=== PATIENT | female | born 1935 | race Caucasian/White ===

== ENCOUNTER 2020-03-10 11:47 | Emergency (ER) | payer OTHER ==
[~2020-03-10] VITALS: Ht 154.9 cm; Wt 45.4 kg
[~2020-03-10 11:47] MED LIST: ABSORBINE JR.0.75 GM; ABSORBINE JR.0.75 GM TP; ALEVE220 MG PO; AMBIEN5 MG PO; AMITRIPTYLINE H10 M3 PO; CLONAZEPAM 0.50.5 M1 PO; ENDOCET 5-3251 EACH PO; FORTEO750 MCG/3 SUBQ; HYDROCODON-ACE1 EAC7 PO; LORAZEPAM 1 MG T1 M1 PO; LORTAB 5-500 T1 EAC1 PO; MELOXICAM7.5 MG PO; PERCOCET 5-3251 EACH PO; PERCOCET PO; SLEEPING MED; STOOL SOFTENER100 M1 PO; TOLTERODINE TART2 MG PO; TRAMADOL 50 MG50 MG PO; TRAZODONE HCL50 MG PO; VOLTAREN GEL 1100 G1 TOP; XANAX 0.25 MG0.25 MG PO; ZOFRAN ODT4 MG PO
[2020-03-10] MEDS ORDERED: NORCO 10-325 T1 EACH PO (13:35)
[2020-03-10] MEDS ORDERED: LIDOCAINE PAIN1 EACH TRANSDERM (13:35)
[2020-03-10 14:20] VITALS: BP 184/79
== END 2020-03-10 14:21 | disposition home or self-care (01) ==
LOC: ER 11:47
DX: S22.078A Other fracture of T9-T10 vertebra, initial encounter for closed fracture (principal); S32.028A Other fracture of second lumbar vertebra, initial encounter for closed fracture; S09.90XA Unspecified injury of head, initial encounter; I10 Essential (primary) hypertension; Z79.899 Other long term (current) drug therapy; W06.XXXA Fall from bed, initial encounter; Y93.89 Activity, other specified; Y92.89 Other specified places as the place of occurrence of the external cause; Y99.8 Other external cause status

== ENCOUNTER 2020-03-25 05:10 | Emergency (ER) | payer OTHER ==
[~2020-03-25] VITALS: Ht 157.5 cm; Wt 49.0 kg
[~2020-03-25 05:10] MED LIST changes: +LIDOCAINE PAIN1 EACH TRANSDERM; +NORCO 10-325 T1 EACH PO
[2020-03-25] MEDS ORDERED: CBD OIL (05:29)
[2020-03-25] MEDS ORDERED: BISOPROLOL PO (05:30)
[2020-03-25] MEDS ORDERED: SENNA-DOCUSATE1 EAC1 PO (07:20)
[2020-03-25 07:22] VITALS: BP 136/55
== END 2020-03-25 08:30 | disposition home or self-care (01) ==
LOC: ER 05:10
DX: K59.00 Constipation, unspecified (principal); I10 Essential (primary) hypertension; Z90.89 Acquired absence of other organs; Z79.899 Other long term (current) drug therapy

== ENCOUNTER 2020-04-19 07:24 | Inpatient (IN) | payer OTHER ==
[~2020-04-19] VITALS: Ht 152.4 cm; Wt 45.4 kg
[~2020-04-19 07:24] MED LIST changes: +BISOPROLOL PO; +CBD OIL; +SENNA-DOCUSATE1 EAC1 PO
[2020-04-19 07:26] VITALS: BP 162/83
[2020-04-19 08:18] LABS: ABSOLUTE NEUTROPHILS 4.9 thou/uL (1.4-8.2); BASOPHILS 0.7 % (0.0-2.0); EOSINOPHILS 0.6 % (0.0-3.0); HEMATOCRIT 41.2 % (37.0-47.0); HEMOGLOBIN 13.5 gm/dL (12.0-15.0); LYMPHOCYTES 17.4 % (24.0-44.0); MCH 24.9 pg (26.0-34.0); MCHC 32.8 g/dL (28.0-37.0); MCV 75.8 fL (80.0-100.0); PLATELET COUNT 326 thou/uL (150-400); POLYS 70.3 % (36.0-66.0); RBC 5.44 mil/uL (4.20-5.00); RDW 15.4 % (10.5-14.5); WBC 6.9 thou/uL (4.0-11.0)
[2020-04-19 08:30] LABS: CALCIUM 9.7 mg/dL (8.5-10.1); CREATININE 0.8 mg/dL (0.6-1.0)
[2020-04-19 08:31] LABS: POTASSIUM 4.4 mmol/L (3.5-5.1)
[2020-04-19 08:35] LABS: ALBUMIN 3.6 g/dL (3.4-5.0); TOTAL BILIRUBIN 0.6 mg/dL (0.2-1.0); TOTAL PROTEIN 6.9 g/dL (6.4-8.2)
[2020-04-19 08:41] LABS: URINE BILIRUBIN NEGATIVE (Negative); URINE BLOOD TRACE (Negative); URINE CLARITY CLEAR; URINE COLOR YELLOW; URINE GLUCOSE-RANDOM* NEGATIVE (Negative); URINE KETONES 1+ (Negative); URINE LEUKOCYTES-REFLEX NEGATIVE (Negative); URINE NITRITE-REFLEX NEGATIVE (Negative); URINE PROTEIN (DIPSTICK) NEGATIVE (Negative); URINE SPECIFIC GRAVITY 1.015 (1.005-1.035)
[2020-04-19 11:14] VITALS: BP 148/67
[2020-04-19 11:21] VITALS: BP 163/74
--- NOTE | 2020-04-19 12:59 | NUR ---
ASSUMED CARE OF PATIENT APPROX. 1200. PT A&OX4, VSS, DENIES PAIN. NO SIGNS OF DISTRESS, WILL CONTINUE TO MONITOR.
--- NOTE | 2020-04-19 13:08 | EKG ---
[facility] [place] [address] ELECTROCARDIOGRAM REPORT Name: ROBINEDDASHAY Room #: 453- ADM IN M.R.#: [id number] Admission: 04/19/20 Attend Phys: Edmar Zambrano MD Discharge: Date of : 31 Report #: [id number] THIS REPORT FOR: cc: Alessio Allen MD, Christopher B. 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
[2020-04-19 19:22] VITALS: BP 187/100
[2020-04-19 22:30] VITALS: BP 137/74
--- NOTE | 2020-04-20 05:20 | NUR ---
Pt. has rested in bed at short intervals during the night when checked on during frequent rounds. She has sounded off her bed alarm several times to get up to the bedside commode. Pt. instructed to use the call light, but she is only oriented to self and does not understand instructions. She has had multiple episodes of soft to loose stools. Bed alarm is on.
[2020-04-20 06:09] LABS: ABSOLUTE NEUTROPHILS 3.8 thou/uL (1.4-8.2); BASOPHILS 0.6 % (0.0-2.0); EOSINOPHILS 0.7 % (0.0-3.0); HEMATOCRIT 40.8 % (37.0-47.0); HEMOGLOBIN 13.4 gm/dL (12.0-15.0); MCHC 32.9 g/dL (28.0-37.0); MCV 76.1 fL (80.0-100.0); MONOCYTES 11.3 % (1.0-8.0); PLATELET COUNT 300 thou/uL (150-400); POLYS 67.4 % (36.0-66.0); RBC 5.36 mil/uL (4.20-5.00); RDW 15.9 % (10.5-14.5); WBC 5.6 thou/uL (4.0-11.0)
[2020-04-20 06:14] LABS: CALCIUM 9.1 mg/dL (8.5-10.1); CREATININE 0.7 mg/dL (0.6-1.0); MAGNESIUM 2.2 mg/dL (1.8-2.4)
[2020-04-20 06:24] LABS: POTASSIUM 3.1 mmol/L (3.5-5.1)
[2020-04-20 07:30] VITALS: BP 166/72
--- NOTE | 2020-04-20 10:21 | NUR ---
Patient asked for glasses, the staff found the glasses in the chart, gave them to the patient; about 30 minutes later, the staff found the patient was alseep with the glasses on the chest and the glasses were short of one part. The patient voiced that the son had that part and would repair it.
--- NOTE | 2020-04-20 14:59 | NUR ---
PT ADMITTED RELATED TO CHRONIC CONSTIPATION. CM REVIEWED CHART AND SPOKE WITH CARE TEAM. CM CALLED AND SPOKE WITH PT'S SON TIM THIS AM. HE INDICATED THAT PT HAD BEEN LIVING IN A HOUSE AND THAT HE RESIDES WITH HER HER CAREGIVER. HE INDICATED THAT THERE ARE 2-3 STEPS TO ENTER AND A FULL FLIGHT THAT PT USES TO GET TO [facility]. 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 CM CALLED PT THIS AFTERNOON AND SHE CONFIRMED THAT ABOVE. SHE INDICATED SHE HAS A FWW THAT SHE USES FOR LONGER DISTANCES. PT INDICATED NO HH OF SNF HX. PT INDICATED SHE WOULD PREFER TO RETURN HOME WITH HH IF APPROPRIATE ONCE MEDICALLY STABLE. CM TO FOLLOW INDICATED WITH DC PLANNING.
[2020-04-20 15:45] VITALS: BP 180/95
[2020-04-20 16:17] VITALS: BP 136/66
[2020-04-20 20:37] VITALS: BP 104/60
--- NOTE | 2020-04-21 03:53 | NUR ---
ASSUMED PT CARE AT 1915.PT IS ALERT TO SELF. VITAL SIGNS STABLE. PT IS AROUSABLE BUT HAS BEEN ALSEEP FOR THE SHIFT SO FAR. PT IS GAURDED WHEN I WAKE HER UP TO TALK TO HER. I CHECKED HER TELE MULTIPLE TIMES WHEN TELE HAS ALARMED ASYSTOLE (DUE TO PLACEMENT OF THE LEADS ). PT HAS IV IN HER RIGHT FOREARM NORMAL SALINE RUNNING AT 80 ML/HR. PT DENIES PAIN. WILL CONTINUE TO MONITOR.
[2020-04-21 05:29] VITALS: BP 132/70
[2020-04-21 07:50] VITALS: BP 148/75
[2020-04-21 10:08] LABS: ABSOLUTE NEUTROPHILS 5.6 thou/uL (1.4-8.2); BASOPHILS 0.3 % (0.0-2.0); EOSINOPHILS 0.6 % (0.0-3.0); HEMATOCRIT 38.9 % (37.0-47.0); HEMOGLOBIN 12.5 gm/dL (12.0-15.0); MCH 24.9 pg (26.0-34.0); MCHC 32.1 g/dL (28.0-37.0); MCV 77.5 fL (80.0-100.0); MONOCYTES 10.1 % (1.0-8.0); PLATELET COUNT 280 thou/uL (150-400); RBC 5.02 mil/uL (4.20-5.00); WBC 7.7 thou/uL (4.0-11.0)
[2020-04-21 10:16] LABS: CALCIUM 8.9 mg/dL (8.5-10.1); CREATININE 0.8 mg/dL (0.6-1.0); POTASSIUM 4.3 mmol/L (3.5-5.1)
--- NOTE | 2020-04-21 11:01 | NUR ---
[facility] SPOKE WITH NIC IN INTAKE SHE RECEIVED REFERRAL AND WILL REVIEW. FA[facility]ED [facility]ERRAL TO [facility] SPOKE WITH RACHELL IN ADM SHE RECEIVED REFERRAL AND IS OON WITH PT'S INSURANCE.
--- NOTE | 2020-04-21 14:11 | NUR ---
CM FOLLOWED UP WITH PT, SON TIM, AND PT'S SISTER JEFFREY WHO RESIDES IN [place] . THEY ARE INTERESTED IN PT GOING TO [facility]. THEY HAD BEEN INTERESTED IN THE [facility] BUT THEY ARE OON WITH INSURANCE. THEY ASKED THAT REFERRAL BE SENT TO [facility] FOR REVIEW FOR POSSIBLE ADMISSION. CM ASKED THAT THEY SUBMIT FOR AUTH IF THEY ARE ABLE TO ACCEPT. CM TO FOLLOW INDICATED WITH DC PLANNING.
[2020-04-21 15:50] VITALS: BP 139/79
--- NOTE | 2020-04-21 17:16 | NUR ---
FAXED REFERRAL TO [facility] WILL F/U WITH FACILITY IN THE MORNING.
[2020-04-21 19:11] VITALS: BP 153/74
--- NOTE | 2020-04-21 19:39 | NUR ---
ASSUMED PT CARE THIS AM. PT VITAL SIGNS STABLE. PT A&OX4 THIS AM, BUT PROGRESSED TO HAVING CONFUSION THROUGHOUT THE SHIFT. PT COOPERATIVE, AMBULATES TO THE BATHROOM. BED ALARM AND CHAIR ALARM ARE ON. PT DURING THE SHIFT REMOVED HER IV AND REMOVED HER TELEMETRY. PT INSTRUCTED ON THE IMPORTANCE OF BOTH OF THESE, PT STATES SHE NEEDS TO GET HOME AND DOES NOT NEED THIS ANYMORE. MADE AWARE. PT ABLE TO BE REDIRECTED AND IS BEING COOPERATIVE WITH STAFF NOW. NIGHT NURSE ENDORSED.
--- NOTE | 2020-04-22 03:49 | NUR ---
ASSUMED PT CARE AROUND 2039. AXOX1. NEVER CALLS FOR ASSISTANCE, JUST GETS UP WITHOUT ASSISTANCE. VSS. NO S/S ACUTE DISTRESS NOTED OR REPORTED AT THIS TIME. WILL CONT TO MONITOR FOR ANY CHANGES IN CONDITION.
[2020-04-22 06:42] LABS: CALCIUM 8.8 mg/dL (8.5-10.1); CREATININE 0.6 mg/dL (0.6-1.0)
[2020-04-22 07:11] VITALS: BP 155/85
[2020-04-22 09:00] VITALS: BP 155/85
--- NOTE | 2020-04-22 13:41 | NUR ---
[facility] HAS REVIEWED REFERRAL REVIEWED AND INDICATED THEY CAN ACCEPT PT MEDICALLY. THEY SUBMITTED FOR INSURANCE AUTH THIS MORNING. COVID TEST ORDERED. PT AND SON WERE NOTIFIED. CM TO FOLLOW INDICATED WITH DC PLANNING.
[2020-04-22 14:58] VITALS: BP 152/76
--- NOTE | 2020-04-22 18:44 | NUR ---
ASSUMED CARE OF PATIENT THIS AM. ASSESSMENT CHARTED; MEDS GIVEN PER MAR. VSS. PATIENT IS A&OX2 AND VERY CONFUSED. VERY IMPULSIVE AND NEEDS CONSTANT REDIRECTION. FALL PRECAUTIONS IN PLACE AND FREQUENT ROUNDING IS DONE. VOICES PAIN,RECIEVED HEAT PACK AND REPORTS FEELING BETTER. AUTHORIZATION IS APPROVED FOR [facility] TOMORROW AT NOON. PATIENT IS ANXIOUS ABOUT LEAVING BUT VOICES NO OTHER NEEDS WILL CONTINUE TO MONITOR
--- NOTE | 2020-04-23 05:10 | NUR ---
Pt. rested quietly at intervals during the night when checked on during frequent rounds. She offers no complaints. Pleasantly confused and oriented to self. Up to the bathroom with standby assistance. Bed alarm is on.
[2020-04-23 05:52] LABS: CALCIUM 9.4 mg/dL (8.5-10.1); CREATININE 0.7 mg/dL (0.6-1.0); POTASSIUM 3.6 mmol/L (3.5-5.1)
[2020-04-23 07:32] VITALS: BP 150/88
[2020-04-23 08:42] VITALS: BP 150/88
[2020-04-23 08:55] VITALS: BP 150/88
--- NOTE | 2020-04-23 08:59 | NUR ---
ASSUMED CARE AT SHIFT CHANGE. ASSESSMENT CHARTED. MEDS GIVEN PER MAR. VSS. PATIENT IS VERY EAGER TO LEAVE. IS DRESSED AND SITTING IN CHAIR; REMOVED TELEMETRY; WILL NOT KEEP IT ON. APPETITE ADEQUATE. AMBULATES SBA W NO ISSUS. DENIES PAIN. PLAN IS TO [place] TODAY AT NOON. VOICES NO OTHER NEEDS. WILL CONTINUE TO MONITOR
--- NOTE | 2020-04-23 09:09 | NUR ---
AUTH WAS RECEIVED FOR PT TO DISCHARGE TO [facility] THIS DAY. PT'S COVID TEST RESULTS ARE BACK AND HAVE BEEN SENT TO FACILITY. ORDERS ARE TO BE FAXED ONCE COMPLETED. WHEELCHAIR VAN TRANSPORT ARRANGED FOR 12:00. PT AND SON ARE AWARE AND AGREEABLE. CHART COPY MADE. NO OTHER CM INTERVENTION INDICATED CASE CLOSED.
[2020-04-23] MEDS ORDERED: VITAMIN D21250 MC1 PO (09:44)
[2020-04-23] MEDS ORDERED: NORVASC5 MG PO (09:44)
[2020-04-23] MEDS ORDERED: B-12500 MCG PO (09:45)
--- NOTE | 2020-04-23 11:24 | NUR ---
ATTEMPTED TO CALL REPORT X2 TO [facility]. WILL CALL BACK AFTER TRANSPORT IS HERE
--- NOTE | 2020-04-23 13:48 | NUR ---
ATTEMPTED TO CALL REPORTX3; NO ANSWER; LEFT PHONE NUMBER FOR ANY QUESTIONS
== END 2020-04-23 12:40 | DRG 640 ==
LOC: ER 07:24 → EROBS 10:37 → 4W 10:37
PROVIDERS: Emergency Medicine; Hospitalist; Nurse Practitioner; ADMIT Internal Medicine; ATTEND Internal Medicine
DX: E87.1 Hypo-osmolality and hyponatremia (principal); G93.41 Metabolic encephalopathy; Z68.1 Body mass index [BMI] 19.9 or less, adult; Z20.828 Contact with and (suspected) exposure to other viral communicable diseases; I10 Essential (primary) hypertension; K59.09 Other constipation; M19.90 Unspecified osteoarthritis, unspecified site; D50.9 Iron deficiency anemia, unspecified; G47.00 Insomnia, unspecified; N32.81 Overactive bladder; R63.4 Abnormal weight loss; E53.8 Deficiency of other specified B group vitamins; R29.6 Repeated falls; F03.90 Unspecified dementia, unspecified severity, without behavioral disturbance, psychotic disturbance, mood disturbance, and anxiety; E55.9 Vitamin D deficiency, unspecified; Z79.899 Other long term (current) drug therapy
CPT/HCPCS: 10045

== ENCOUNTER 2021-07-13 10:54 | Emergency (ER) | payer OTHER ==
[~2021-07-13] VITALS: Ht 152.4 cm; Wt 45.4 kg
--- NOTE | ~2021-07-13 | EMS ---
[address] [address] EMS Patient Care Report Name: SHAY LAWSON Room #: DEP Shun#: [id number] Admission: 07/13/21 Attend Phys: Discharge: 07/13/21 Date of : 33 Report #: [id number] THIS REPORT FOR: //name// Report Transmitted: 07/13/2021 19:28 EMS Care Summary [facility] MED-ACT Incident [id number] @ 07/13/2021 10:15 Incident Location [address] [place] [address] Patient SHAY LAWSON Female, 85 Years 1935 Patient Address [address] [place] [address] Patient History Dementia,Hypertension (HTN),Constipation,Back Pain (Chronic), Patient Allergies No known allergies, Patient Medications Tramadol, Chief Complaint tailbone paink Disposition Transported No Lights/[place] Dispatch Reason Back Pain (Non-Traumatic) Transported To [facility] Narrative CC: back pain secondary to fall H: [id number] was dispatched to a C3 back pain at a residence. On arrival pt was laying supine in bed. Pt was alert, but confused to time. Pts son reported [address] [address] EMS Patient Care Report Name: SHAY LAWSON Room #: DEP EDDA Hoffmann#: [id number] Admission: 07/13/21 Attend Phys: Discharge: 07/13/21 Date of : 33 Report #: [id number] this is normal for the pt. He reported two days ago she fell trying to walk up the steps. He reported she tripped over the first, lowest step, and fell onto her bottom. He reported she did not hit her head or loose consciousness. He reported he carried her up to bed and she has been there with back pain ever since. He reported two days ago he took her off her Tramadol because she was constipated and had not given her any since. Pt reported she could not move secondary to pain. On exam pt had pain to her right buttock more than the left. She reported he had pain on the left side, but it was not as severe as the right. Pts hips palpated without grimace or complaint. No shortening or rotation noted. All neuros intact. An IV established and pt given 100mcg of IV Fentanyl. Pt reported secondary to this she was pain free. Pt reported she did not know what made her fall a couple days ago and son reported she slipped on the step. Pt denied any other complaint prior to and after the Fentanyl. Pt placed on the dolphin tarp and then moved to the cot. Pt sat in the semi folwer's position, position of comfort. Pts vitals monitored and she denied any complaint during transport. Biocom to [facility] without questions or orders. Pt care to ED staff in the ramey. Pt moved from cot to bed via sheet drag and pt still denied complaint. Report to ED staff and pt left in ED care without incident or change. Assessment: See narrative and assessment tab for details Treatment: Vitals, temp, 4 lead, successful IV, 100mcg IV Fentanyl Transport: Pts vitals monitored during transport. Destination: Pt transported to [facility], destination of choice. Initial Vitals @10:43P: 88,R: 16,BP: 190/84,Pain: 0/10,GCS: 14,SpO2: 99,Revised Trauma: 12, @10:41P: 87,R: 16,GCS: 14,SpO2: 95,AL Suspected: false @10:40P: 91,R: 16,BP: 190/95,Pain: 8/10,GCS: 14,Temp: 98.2F,SpO2: 96,Revised Trauma: 12, Impression Injury of Lower Back Procedures @10:27 IV Therapy - Saline Lock 20cc (20 ga) Site: Antecubital-Left Response: UnchangedSucceeded @10:30 Fentanyl - 100 Micrograms (mcg) - Intravenous (IV) Response: Improved @10:40 Surgical Mask on Patient Response: Unchanged Timeline 10:12,Call Received [address] [address] EMS Patient Care Report Name: SHAY LAWSON Room #: [facility] Shun#: [id number] Admission: 07/13/21 Attend Phys: Discharge: 07/13/21 Date of : 31 Report #: [id number] 10:12,Psap Call 10:15,Dispatched 10:16,En Route 10:21,On Scene 10:22,At Patient 10:27,IV Therapy - Saline Lock 20cc 20 ga Site: Antecubital-Left,Response: UnchangedSucceeded, 10:30,Fentanyl - 100 Micrograms (mcg) - Intravenous (IV),Response: Improved 10:36,Depart Scene 10:40,Surgical Mask on Patient,Response: Unchanged 10:40,BP: 190/95 M,PULSE: 91,RR: 16 R,SPO2: 96 Ox,ETCO2: ,BG: ,PAIN: 8,GCS: 14, 10:41,BP: / M,PULSE: 87,RR: 16 R,SPO2: 95 Ox,ETCO2: ,BG: ,PAIN: ,GCS: 14, 10:43,BP: 190/84 M,PULSE: 88,RR: 16 R,SPO2: 99 Ox,ETCO2: ,BG: ,PAIN: 0,GCS: 14, 10:47,At Destination 11:04,Call Closed Disclaimer v1.1 Copyright 2020 [employer] This EMS Care Summary contains data elements from the applicable legal record (which may be displayed differently). It is designed to provide pertinent information for the following purposes: continuity of care, clinical quality, and state data reporting. The complete legal record is available to ED staff and administrators of the receiving hospital in [employer]'s Patient Tracker. All data is provided "as is."
--- NOTE | ~2021-07-13 | EMS ---
[address] [address] EMS Patient Care Report Name: SHAY LAWSON Room #: DEP Shun#: [id number] Admission: 07/13/21 Attend Phys: Discharge: 07/13/21 Date of : 31 Report #: [id number] THIS REPORT FOR: //name// Report Transmitted: 07/13/2021 20:31 EMS Care Summary [facility] MED-ACT Incident [id number] @ 07/13/2021 10:15 Incident Location [address] [place] [address] Patient SHAY LAWSON Female, 85 Years 1935 Patient Address [address] [place] [address] Patient History Dementia,Hypertension (HTN),Constipation,Back Pain (Chronic), Patient Allergies No known allergies, Patient Medications Tramadol, Chief Complaint tailbone paink Disposition Transported No Lights/[place] Dispatch Reason Back Pain (Non-Traumatic) Transported To [facility] Narrative CC: back pain secondary to fall H: M1134 was dispatched to a C3 back pain at a residence. On arrival pt was laying supine in bed. Pt was alert, but confused to time. Pts son reported [address] [address] EMS Patient Care Report Name: SHAY LAWSON Room #: DEP EDDA Hoffmann#: [id number] Admission: 07/13/21 Attend Phys: Discharge: 07/13/21 Date of : 33 Report #: [id number] this is normal for the pt. He reported two days ago she fell trying to walk up the steps. He reported she tripped over the first, lowest step, and fell onto her bottom. He reported she did not hit her head or loose consciousness. He reported he carried her up to bed and she has been there with back pain ever since. He reported two days ago he took her off her Tramadol because she was constipated and had not given her any since. Pt reported she could not move secondary to pain. On exam pt had pain to her right buttock more than the left. She reported he had pain on the left side, but it was not as severe as the right. Pts hips palpated without grimace or complaint. No shortening or rotation noted. All neuros intact. An IV established and pt given 100mcg of IV Fentanyl. Pt reported secondary to this she was pain free. Pt reported she did not know what made her fall a couple days ago and son reported she slipped on the step. Pt denied any other complaint prior to and after the Fentanyl. Pt placed on the dolphin tarp and then moved to the cot. Pt sat in the semi folwer's position, position of comfort. Pts vitals monitored and she denied any complaint during transport. Biocom to [facility] without questions or orders. Pt care to ED staff in the ramey. Pt moved from cot to bed via sheet drag and pt still denied complaint. Report to ED staff and pt left in ED care without incident or change. Assessment: See narrative and assessment tab for details Treatment: Vitals, temp, 4 lead, successful IV, 100mcg IV Fentanyl Transport: Pts vitals monitored during transport. Destination: Pt transported to [facility], destination of choice. Initial Vitals @10:43P: 88,R: 16,BP: 190/84,Pain: 0/10,GCS: 14,SpO2: 99,Revised Trauma: 12, @10:41P: 87,R: 16,GCS: 14,SpO2: 95,OR Suspected: false @10:40P: 91,R: 16,BP: 190/95,Pain: 8/10,GCS: 14,Temp: 98.2F,SpO2: 96,Revised Trauma: 12, Impression Injury of Lower Back Procedures @10:27 IV Therapy - Saline Lock 20cc (20 ga) Site: Antecubital-Left Response: UnchangedSucceeded @10:30 Fentanyl - 100 Micrograms (mcg) - Intravenous (IV) Response: Improved @10:40 Surgical Mask on Patient Response: Unchanged Timeline 10:12,Call Received [address] [address] EMS Patient Care Report Name: SHAY LAWSON Room #: [facility] Shun#: [id number] Admission: 07/13/21 Attend Phys: Discharge: 07/13/21 Date of : 31 Report #: [id number] 10:12,Psap Call 10:15,Dispatched 10:16,En Route 10:21,On Scene 10:22,At Patient 10:27,IV Therapy - Saline Lock 20cc 20 ga Site: Antecubital-Left,Response: UnchangedSucceeded, 10:30,Fentanyl - 100 Micrograms (mcg) - Intravenous (IV),Response: Improved 10:36,Depart Scene 10:40,Surgical Mask on Patient,Response: Unchanged 10:40,BP: 190/95 M,PULSE: 91,RR: 16 R,SPO2: 96 Ox,ETCO2: ,BG: ,PAIN: 8,GCS: 14, 10:41,BP: / M,PULSE: 87,RR: 16 R,SPO2: 95 Ox,ETCO2: ,BG: ,PAIN: ,GCS: 14, 10:43,BP: 190/84 M,PULSE: 88,RR: 16 R,SPO2: 99 Ox,ETCO2: ,BG: ,PAIN: 0,GCS: 14, 10:47,At Destination 11:04,Call Closed Disclaimer v1.1 Copyright 2020 [employer] This EMS Care Summary contains data elements from the applicable legal record (which may be displayed differently). It is designed to provide pertinent information for the following purposes: continuity of care, clinical quality, and state data reporting. The complete legal record is available to ED staff and administrators of the receiving hospital in [employer]'s Patient Tracker. All data is provided "as is."
[~2021-07-13 10:54] MED LIST changes: +B-12500 MCG PO; +NORVASC5 MG PO; +VITAMIN D21250 MC1 PO
[2021-07-13 11:00] VITALS: BP 140/58
[2021-07-13] MEDS ORDERED: APAP W/CODEINE1 TA2 PO (14:02)
== END 2021-07-13 14:48 | disposition home or self-care (01) ==
LOC: ER 10:54
DX: S32.10XA Unspecified fracture of sacrum, initial encounter for closed fracture (principal); I10 Essential (primary) hypertension; Z90.89 Acquired absence of other organs; Z79.891 Long term (current) use of opiate analgesic; Z79.899 Other long term (current) drug therapy; W18.30XA Fall on same level, unspecified, initial encounter; Y93.89 Activity, other specified; Y92.89 Other specified places as the place of occurrence of the external cause; Y99.8 Other external cause status

== ENCOUNTER 2021-07-20 18:06 | Inpatient (IN) | payer OTHER ==
[~2021-07-20] VITALS: Ht 152.4 cm; Wt 45.4 kg
--- NOTE | ~2021-07-20 | EMS ---
[address] [address] EMS Patient Care Report Name: SHAY LAWSON Room #: REG EDDA Hoffmann#: [id number] Admission: 07/20/21 Attend Phys: Discharge: Date of : 31 Report #: [id number] THIS REPORT FOR: //name// Report Transmitted: 07/20/2021 18:[address] [facility] MED-ACT Incident [id number] @ 07/20/2021 17:30 Incident Location [address] [place] [address] Patient SHAY LAWSON Female, 85 Years 1935 Patient Address [address] [place] [address] Patient History Dementia,Hypertension (HTN),Constipation,Back Pain (Chronic), Patient Allergies No known allergies, Patient Medications Tramadol, Chief Complaint fall with injury Disposition Transported No Lights/[place] Dispatch Reason Falls Transported To [facility] Narrative EMS arrived to pt laying in her bed being assessed by Lola LORD. Pt said she tripped and fell in one of the bedrooms. It was reported as a mechanical ground level fall. Pt complained of left hip pain only when she tried to lift her left leg. Pt had a small bump on the back of her head but denied pain. Pt denied [address] [address] EMS Patient Care Report Name: SHAY LAWSON Room #: REG Shun#: [id number] Admission: 07/20/21 Attend Phys: Discharge: Date of : 31 Report #: [id number] loss of consciousness/neck or back pain/blood thinners/complaints prior to fall. Pt log rolled onto sheet and lifted onto bed. Secured on cot. Pt to MICU. En route pt denied pain. Biocom- no orders req/rec Pt to room, lifted to bed, verbal report to RN Initial Vitals @PTAP: 80,BP: 206/101,SpO2: 98, @17:56P: 70,R: 16,BP: 199/94,Pain: 0/10,GCS: 14,Temp: 96.1F,SpO2: 96,Revised Trauma: 12, Impression Injury Procedures @17:47 ALS Assessment Response: UnchangedSucceeded @17:59 Surgical Mask on Patient Response: Unchanged Timeline GASKET MAKER,BP: 206/101 M,PULSE: 80,RR: R,SPO2: 98 Ox,ETCO2: ,BG: ,PAIN: ,GCS: , 17:29,Call Received 17:29,Psap Call 17:30,Dispatched 17:31,En Route 17:42,On Scene 17:45,At Patient 17:47,ALS Assessment,Response: UnchangedSucceeded, 17:53,Depart Scene 17:56,BP: 199/94 M,PULSE: 70,RR: 16 R,SPO2: 96 Ox,ETCO2: ,BG: ,PAIN: 0,GCS: 14, 17:59,Surgical Mask on Patient,Response: Unchanged 18:02,At Destination 18:20,Call Closed Disclaimer v1.1 Copyright 2020 [email or web address] This EMS Care Summary contains data elements from the applicable legal record (which may be displayed differently). It is designed to provide pertinent information for the following purposes: continuity of care, clinical quality, and state data reporting. The complete legal record is available to ED staff and administrators of the receiving hospital in [employer]'s Patient Tracker. All data is provided "as is."
[~2021-07-20 18:06] MED LIST changes: +APAP W/CODEINE1 TA2 PO
[2021-07-20 18:09] VITALS: BP 178/78
[2021-07-20 20:51] LABS: ABSOLUTE NEUTROPHILS 9.2 thou/uL (1.4-8.2); BASOPHILS 0.2 % (0.0-2.0); EOSINOPHILS 0.6 % (0.0-3.0); HEMOGLOBIN 14.9 gm/dL (12.0-15.0); LYMPHOCYTES 15.7 % (24.0-44.0); MCH 26.5 pg (26.0-34.0); MCHC 32.3 g/dL (28.0-37.0); MCV 81.8 fL (80.0-100.0); MONOCYTES 7.4 % (1.0-8.0); PLATELET COUNT 431 thou/uL (150-400); POLYS 76.1 % (36.0-66.0); RBC 5.61 mil/uL (4.20-5.00); RDW 17.3 % (10.5-14.5); WBC 12.1 thou/uL (4.0-11.0)
[2021-07-20 20:55] LABS: CALCIUM 9.6 mg/dL (8.5-10.1); CREATININE 0.9 mg/dL (0.6-1.0); POTASSIUM 3.8 mmol/L (3.5-5.1)
[2021-07-21 02:08] LABS: HEMATOCRIT 40.9 % (37.0-47.0); HEMOGLOBIN 13.6 gm/dL (12.0-15.0); MCH 27.2 pg (26.0-34.0); MCHC 33.2 g/dL (28.0-37.0); RBC 4.98 mil/uL (4.20-5.00); RDW 17.2 % (10.5-14.5); WBC 10.2 thou/uL (4.0-11.0)
[2021-07-21 03:36] LABS: CALCIUM 9.3 mg/dL (8.5-10.1); CREATININE 0.8 mg/dL (0.6-1.0); MAGNESIUM 1.9 mg/dL (1.8-2.4); PHOSPHORUS 2.4 mg/dL (2.5-4.9); POTASSIUM 4.6 mmol/L (3.5-5.1)
--- NOTE | 2021-07-21 07:47 | EKG ---
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 : 1935 Requested By: Fabiola Vilchis Order Number: [id number] MD: Aguilar Cano Measurements Intervals [place] Rate: 75 P: 24 VA: 173 QRS: -23 QRSD: 93 T: 39 QT: 381 QTc: 426 Interpretive Statements Sinus rhythm Borderline left axis deviation Compared to ECG 04/19/2020 08:16:37 Myocardial infarct finding no longer present Electronically Signed On 07-21-2021 7:46:58 ADMINISTRATIVE PERSONAL ASSISTANT by Aguilar Cano [email or web address] <ELECTRONICALLY SIGNED> By: Aguilar Cano MD, [facility] 07/21/2146 19 19 Aguilar Cano MD, FACC /EPI
[2021-07-21 10:35] VITALS: BP 114/57
[2021-07-21 14:39] VITALS: BP 114/57
--- NOTE | 2021-07-21 15:38 | NUR ---
INITIAL ASSESSMENT: Received consult for discharge planning. SHRADDHA reviewed chart and spoke with attending physician. Pt was admitted from home after a fall. Pt with T1 fracture/pelvic fx. Neurosurgery and ortho consulted. PT/OT evals on hold pending consults. SHRADDHA spoke with pt's son, Mau, via phone. Introduced role of SHRADDHA. Pt with hx of dementia and lives at home with Mau. Per Mau, pt has had frequent falls. Pt has been to [facility] in the past. Pt's PCP is Dr. Mateo Patel. Pt's son states he would like to speak to a physician. Pt is currently waiting for a bed. Pt remains in the ER at this time. SW encouraged pt's son to ask to speak with the ER physician or have hospitalist paged. No weekend discharge planned. Will need insurance auth for post-acute placement. Pt may need LTC placement if pt's son is unable to provide 24 hour care at home. SHRADDHA is following to assist as needed with discharge planning.
[2021-07-21 16:22] VITALS: BP 150/81
--- NOTE | 2021-07-21 17:17 | NUR ---
PT FAMILY MEMBER TIM IS PERSON TO CONTACT FOR UPDATES/CHANGES [phone]
[2021-07-21 17:52] VITALS: BP 155/79
--- NOTE | 2021-07-21 20:00 | NUR ---
Pt. was admitted earlier today from the emergency room. Pt. resting in the bed and offers no complaints. She is awake, but with scattered confusion. She is oriented times one to self. Admission assessment is completed. Bed alarm is on.
[2021-07-21 20:33] VITALS: BP 150/87
--- NOTE | 2021-07-21 23:15 | NUR ---
Pt. is very confused and has attempted to get up out of the bed without using her call light. Bed alarm has sounded. She has pulled out two peripheral iv's. Bed alarm is on.
--- NOTE | 2021-07-22 04:26 | NUR ---
Pt. has rested quietly at short intervals during the night when checked on during frequent rounds. Alert with confusion and continues to attempt to get up out of the bed without using call light. Bed alarm has sounded. Pt. denies being in any pain. Currently in the bed and CHECK CASHIER is assisting patient with a sponge bath.
[2021-07-22 07:51] VITALS: BP 145/92
[2021-07-22 15:17] VITALS: BP 143/92
--- NOTE | 2021-07-22 15:45 | NUR ---
ASSUMED CARE OF PT AT 0700 THIS MORNING. PT C/O WEAKNESS AND UNSTEADY ON HIS FEET. PT IS A/OX4 WITH SOME FORGETFULNESS. ASSESSMENTS NOTED ON CHART AND OTHERWISE UNREMARKABLE. FALL PRECAUTIONS ARE IN PLACE. CALL LIGHT AND OTHER NEEDS ARE IN REACH. MEDS AND TX GIVEN NEEDED AND SCHEDULED. WILL MONITOR AND NOTE ANY CHANGES.
[2021-07-22 19:30] VITALS: BP 112/82
[2021-07-23 06:14] LABS: ALBUMIN 2.8 g/dL (3.4-5.0); CALCIUM 9.3 mg/dL (8.5-10.1); CREATININE 0.8 mg/dL (0.6-1.0); MAGNESIUM 2.2 mg/dL (1.8-2.4); POTASSIUM 4.1 mmol/L (3.5-5.1); TOTAL BILIRUBIN 0.6 mg/dL (0.2-1.0); TOTAL PROTEIN 6.2 g/dL (6.4-8.2)
[2021-07-23 07:44] VITALS: BP 105/60
--- NOTE | 2021-07-23 07:45 | NUR ---
ASSUMED CARE AT 1900, PT ALART AND ORIENTED TO SELF, MULTIPLE ATTEMPTS TO EXIT THE BED, NO BOWEL THIS NIGHT, SY PATENT, COMPLIAMT WITH TX, NO ADVERSE REACTION, ON FALL PROTCOL, VOICED NO NEEDS, WILL CONTINUE TO MONITOR.
--- NOTE | 2021-07-23 09:59 | NUR ---
Assumed care of pt at 0700. Pt a&o2 with periods opf confusion and impulsiveness. Pain controlled. Mills catheter in place. RA. Family at bedside. Call light within reach. Fall precautions in place. Will continue to monitor.
[2021-07-23 16:41] VITALS: BP 127/76
[2021-07-23 19:29] VITALS: BP 123/79
--- NOTE | 2021-07-24 05:31 | NUR ---
patient aox1 confused and forgetful. patient denied pain or discomfort this shift.patient turned q 2 hours as patient can tolerate. fall precaution in place. patient in bed asleep at this time breathing regular and unlaboured.
[2021-07-24 07:00] VITALS: BP 152/90
[2021-07-24 08:11] LABS: ALBUMIN 2.7 g/dL (3.4-5.0); CALCIUM 9.1 mg/dL (8.5-10.1); CREATININE 0.8 mg/dL (0.6-1.0); MAGNESIUM 2.3 mg/dL (1.8-2.4); POTASSIUM 3.8 mmol/L (3.5-5.1); TOTAL BILIRUBIN 0.7 mg/dL (0.2-1.0); TOTAL PROTEIN 6.3 g/dL (6.4-8.2)
--- NOTE | 2021-07-24 08:59 | NUR ---
Assumed care of pt at 0700. Pt a&ox1-2. Denies pain. Calm and follows commands today. Mills catheter in place. Incontinent. Family at bedside. Call light within reach. Fall precautions in place. Will continue to monitor.
[2021-07-24 20:11] VITALS: BP 136/76
[2021-07-25 05:00] VITALS: BP 144/82
[2021-07-25 06:59] LABS: ALBUMIN 2.9 g/dL (3.4-5.0); CALCIUM 9.3 mg/dL (8.5-10.1); CREATININE 0.8 mg/dL (0.6-1.0); PHOSPHORUS 2.8 mg/dL (2.6-4.7)
[2021-07-25 07:00] VITALS: BP 122/55
--- NOTE | 2021-07-25 07:27 | NUR ---
PT LYING IN BED. LORTAB PROVIDING PAIN RELIEF. RESTLESS AND IMPULSIVE. FREQUENT OBSERVATION.
--- NOTE | 2021-07-25 09:48 | NUR ---
cm visited with her son x 2 this morning. He voiced concerns that he will not be able to care for her at home, unless she is able to walk and needs therapy again. she been to [facility] before. List choice for [facility] if [facility] is unable to accept when she is medically stable to dc. 2nd [facility]. referral to be sent for skilled.
--- NOTE | 2021-07-25 10:05 | NUR ---
Assumed care of pt at 0700. Pt a&ox1-2. RA. Incontinent. PT/OT. Denies pain. Call light within reach. Fall precautions in place. Will continue to monitor.
--- NOTE | 2021-07-25 12:44 | NUR ---
Initial eval for pt with low BMI. However, upon visit with pt, height recorded was error. Pt confirmed 5'0" so new BMI is 19.5. Pt reports usual wt is around 100 lb, stable. Needed some assist with lunch meal set up. Noted ST recommended mech altered diet, but pt still on regular. Communicated with ST for clarification. Otherwise low nutrition risk
[2021-07-25 16:15] VITALS: BP 167/81
[2021-07-25 20:00] VITALS: BP 145/60
--- NOTE | 2021-07-26 05:50 | NUR ---
Pt. rested quietly at intervals during the night when checked on during frequent rounds. She had been on her call light frequently at HS. Pt. very confused and did not really need anything. Po pain med given for c/o back pain (see emar) with some relief noted. Bed alarm is on,
[2021-07-26 07:06] VITALS: BP 147/68
--- NOTE | 2021-07-26 11:09 | NUR ---
[facility] accepted and they will submit for auth today. Passed on information to the attending physician during los. chart copy requested.
[2021-07-26 15:41] VITALS: BP 116/66
--- NOTE | 2021-07-26 16:38 | NUR ---
PATIENT CARE RESUMMED; PATIENT LOCATED IN BED RESTING COMFORTABLY; PATIENT A&O*1 (SELF ONLY); VSS PER PATIENT BASELINE; ON ROOMAIR; PATIENT HAS BEEN CALM THROUGHOUT SHIFT, ALTHOUGH IMPULSIVE WITH CALL-LIGHT AT TIMES AND OTHERS NOT USING CALL LIGHT AT ALL AND GETTING UP WITHOUT ASSISTANCE; PATIENT MEDICATION COMPLIANT; PLEASENT AND COOPERATIVE ALTHOUGH CONFUSED; IN REPORT SENIOR BI ARCHITECT INFORMED PATIENT PULLED OUT SY CATH AND IV ACCESS; NEW SY/IV WAS NOT IMPLIMENTED; PATIENT INCONTINENT OF BLADDER*5 AND BOWEL*3; FALL PRECAUTIONS IN PLACE, CALL LIGHT WITHIN REACH, BED/CHAIR ALARMS ACTIVE;
[2021-07-26 20:03] VITALS: BP 115/62
--- NOTE | 2021-07-27 02:45 | NUR ---
Pt is alert to self. mainly confused. can be impulsive. Takes meds whole. Spencer given for lower back/pelvic pain.Room air and in no distress.Plan to d/c to snf today.
[2021-07-27 07:00] VITALS: BP 131/61
--- NOTE | 2021-07-27 13:00 | NUR ---
PT ASSESSED AT START OF SHIFT. CALM AND COOPERATIVE. UP TO THE CHAIR BY THERAPY. ATE GOOD BKFT. NO C/O PAIN. SON HERE FOR VISIT. DISCHARGED AT THIS TIME TO FACILITY PER W/C [facility].
--- NOTE | 2021-07-27 16:16 | NUR ---
Pt dc'd today to snf at [facility] today via their w/c van. Pt and son updated at bedside this morning and dc time confirmed with all parties. Pt and son agreeable to snf stay. Dc orders faxed and confirmed with admissions. Son to take clothing over and help with admission paperwork. Chart copy sent with the pt and nursing called report.
== END 2021-07-27 12:46 | DRG 552 ==
LOC: ER 18:06 → EROBS 20:31 → 4S 20:31 → EROBS 07-21 04:52 → 4S 07-21 17:48
PROVIDERS: Hospitalist; Internal Medicine; Physician Assistant; ADMIT Surgery; ATTEND Surgery
DX: S22.019A Unspecified fracture of first thoracic vertebra, initial encounter for closed fracture (principal); S32.810A Multiple fractures of pelvis with stable disruption of pelvic ring, initial encounter for closed fracture; S32.059A Unspecified fracture of fifth lumbar vertebra, initial encounter for closed fracture; S32.10XA Unspecified fracture of sacrum, initial encounter for closed fracture; E87.1 Hypo-osmolality and hyponatremia; E44.0 Moderate protein-calorie malnutrition; Z68.1 Body mass index [BMI] 19.9 or less, adult; I16.0 Hypertensive urgency; I10 Essential (primary) hypertension; K59.09 Other constipation; G89.29 Other chronic pain; M54.9 Dorsalgia, unspecified; F03.90 Unspecified dementia, unspecified severity, without behavioral disturbance, psychotic disturbance, mood disturbance, and anxiety; R53.81 Other malaise; M19.90 Unspecified osteoarthritis, unspecified site; Z66 Do not resuscitate; W18.39XA Other fall on same level, initial encounter; Y93.89 Activity, other specified; Y92.89 Other specified places as the place of occurrence of the external cause; Y99.8 Other external cause status; Z20.822 Contact with and (suspected) exposure to COVID-19; Z28.21 Immunization not carried out because of patient refusal
CPT/HCPCS: 10102; 10195